=== PATIENT | female | born 1940 | race Caucasian/White ===

== ENCOUNTER 2025-05-23 16:57 | Inpatient (IN) | payer MEDICARE, OTHER ==
[~2025-05-23] VITALS: Ht 149.9 cm; Wt 46.3 kg
[2025-05-23 17:05] VITALS: BP 124/76
[2025-05-23] MEDS ORDERED: ACET-2605 PO (17:35)
[2025-05-23] MEDS ORDERED: LIDOCAINE 5% OINT TOP (17:35)
[2025-05-23] MEDS ORDERED: DONE10TA44 PO (17:35)
[2025-05-23] MEDS ORDERED: ALBU8HFA4 INH (17:35)
[2025-05-23] MEDS ORDERED: SENN8.6T19 PO (17:35)
[2025-05-23] MEDS ORDERED: CHOL200078 PO (17:35)
[2025-05-23] MEDS ORDERED: NITR0.4T48 SL (17:35)
[2025-05-23] MEDS ORDERED: MELA3CAP2 PO (17:35)
[2025-05-23] MEDS ORDERED: BISA10SU61 RC (17:35)
[2025-05-23] MEDS ORDERED: MULT-213 PO (17:35)
[2025-05-23] MEDS ORDERED: ACET325C7 PO (17:35)
[2025-05-23] MEDS ORDERED: POLY17PO4 PO (17:35)
[2025-05-23] MEDS ORDERED: MIRT-93 PO (17:35)
[2025-05-23] MEDS ORDERED: QUET25TA PO (17:35)
[2025-05-23] MEDS ORDERED: CLON0.2T PO (17:35)
[2025-05-23] MEDS ORDERED: CHLO473M5 PO (17:35)
[2025-05-23] MEDS ORDERED: LEVO25TA9 PO (17:35)
[2025-05-23] MEDS ORDERED: CYCL30DR EACHEYE (17:35)
[2025-05-23] MEDS ORDERED: FURO20TA4 PO (17:35)
[2025-05-23] MEDS ORDERED: LORA-258 PO (17:35)
[2025-05-23] MEDS: HYDROCODONE/APAP 5-325MG TABLET PO ONE (19:45)
[2025-05-23] MEDS ORDERED: MAGNESIUM HYDROXIDE 30 ML LIQUID UDC PO PRN (22:30)
[2025-05-23] MEDS ORDERED: TEMAZEPAM 7.5 MG CAPSULE PO PRN (22:30)
[2025-05-23] MEDS ORDERED: MAG HYDROX/AL HYDROX/SIMETH 30 ML LIQUID UDC PO PRN (22:30)
[2025-05-23] MEDS: LORAZEPAM 1 MG TABLET PO PRN (23:08)
[2025-05-23] MEDS: BLOOD SUGAR DIAGNOSTIC 1 EACH STRIP VI ONE (23:10)
[2025-05-24] MEDS: TEMAZEPAM 7.5 MG CAPSULE PO PRN (01:32)
[2025-05-24 07:40] LABS: PLATELET COUNT (AUTO) 130 K/uL (179-408); RED BLOOD CELL COUNT(AUTO) 4.03 MIL/uL (3.63-4.92); RED CELL DISTRIBUTION WIDTH 14.5 % (12.3-17.7); WHITE BLOOD COUNT (AUTO) 5.0 K/uL (3.8-11.8)
[2025-05-24 08:05] LABS: ASPARTATE AMINOTRANSFERASE 19 U/L (15-37); CREATININE 0.7 mg/dL (0.6-1.3); SODIUM SERUM 142 mmol/L (136-145); TOTAL PROTEIN, SERUM 6.7 g/dL (6.4-8.2); UREA NITROGEN, BLOOD 22 mg/dL (7-18)
[2025-05-24] MEDS ORDERED: ACET325T53 PO (09:12)
[2025-05-24] MEDS ORDERED: ALBU8HFA4 IH (09:13)
[2025-05-24 09:16] VITALS: BP 137/77; TEMP 98; O2SAT 98
[2025-05-24 14:50] VITALS: BP 107/68; TEMP 98.5; O2SAT 96
[2025-05-24] MEDS ORDERED: NITROGLYCERIN 0.4 MG/TAB BOTTLE SL PRN (19:45)
[2025-05-24] MEDS ORDERED: BISACODYL 10 MG SUPP.RECT RC PRN (19:45)
[2025-05-24] MEDS ORDERED: MIRALAX 17 GM POWD.PACK PO PRN (19:45)
[2025-05-24] MEDS ORDERED: SENNOSIDES 1 TABLET PO PRN (19:45)
[2025-05-24 20:00] VITALS: BP 159/61; TEMP 97.7; O2SAT 98
[2025-05-24] MEDS: MIRTAZAPINE 15 MG TABLET PO SCH (20:39)
[2025-05-24] MEDS: LORAZEPAM 1 MG TABLET PO PRN (20:54)
[2025-05-25] MEDS: TEMAZEPAM 15 MG CAPSULE PO PRN (00:21)
[2025-05-25] MEDS: ACETAMINOPHEN 325 MG TABLET PO PRN (00:21)
[2025-05-25 08:02] VITALS: BP 136/86; TEMP 98.5; O2SAT 96
[2025-05-25] MEDS: LEVOTHYROXINE SODIUM 25 MCG TABLET PO SCH (09:41)
[2025-05-25] MEDS: MULTIVITAMINS,THERAPEUTIC TABLET PO SCH (09:42)
[2025-05-25] MEDS: CHOLECALCIFEROL 1,000 UNIT TABLET PO SCH (09:42)
[2025-05-25] MEDS: LIDOCAINE 5% OINT 35.44 GM TUBE TOP SCH (09:42)
[2025-05-25] MEDS: ENSURE ENLIVE (VAN) 240 ML LIQUID PO SCH (09:43)
[2025-05-25 16:46] VITALS: BP 106/64; TEMP 98.5; O2SAT 96
[2025-05-25 19:52] VITALS: BP 100/51; TEMP 98.1; O2SAT 98
[2025-05-26 08:27] VITALS: BP 146/65; TEMP 98.5; O2SAT 96
[2025-05-26 16:39] VITALS: BP 142/68; TEMP 98.5; O2SAT 96
[2025-05-26 20:00] VITALS: BP 140/70; TEMP 98.8; O2SAT 97
[2025-05-27 08:06] VITALS: BP 141/71; TEMP 98.5; O2SAT 96
[2025-05-27 16:30] VITALS: BP 137/70; TEMP 98.5; O2SAT 96
[2025-05-27 19:49] VITALS: BP 98/53; TEMP 98.2; O2SAT 97
[2025-05-27 20:00] VITALS: BP 138/77
[2025-05-28 07:45] VITALS: BP 138/68; TEMP 97.6; O2SAT 98
[2025-05-28 15:54] VITALS: BP 125/66; TEMP 97.6; O2SAT 98
[2025-05-28 20:00] VITALS: BP 135/80; TEMP 97.6; O2SAT 96
[2025-05-29 08:00] VITALS: BP 119/60; TEMP 97.6; O2SAT 98
[2025-05-29 16:00] VITALS: BP 109/59; TEMP 97.6; O2SAT 98
[2025-05-29 19:00] VITALS: BP 138/55; TEMP 97.8; O2SAT 99
[2025-05-29] MEDS: MIRTAZAPINE 15 MG TABLET PO SCH (22:00)
[2025-05-30 07:50] VITALS: BP 107/67; TEMP 97.6; O2SAT 98
[2025-05-30 16:14] VITALS: BP 116/70; TEMP 97.6; O2SAT 98
[2025-05-31 07:44] VITALS: BP 168/90; TEMP 98.4; O2SAT 99
[2025-05-31 16:09] VITALS: BP 118/51; TEMP 97.4; O2SAT 99
[2025-05-31 20:00] VITALS: BP 108/55; TEMP 97.4; O2SAT 99
[2025-06-01 07:57] LABS: *BILIRUBIN,URIN NEGATIVE (NEGATIVE); *BLOOD, URINE NEGATIVE (NEGATIVE); *COLOR,URINE YELLOW (YELLOW); *KETONES,URINE NEGATIVE (NEGATIVE); *PROTEIN,URINE NEGATIVE (NEGATIVE); *UROBILINOGEN,URINE 0.2 E.U./dl (NORMAL); LEUKOCYTE ESTERASE ,URINE 2+ (NEGATIVE); NITRITE, URINE POSITIVE (NEGATIVE); UGLUCOSE NEGATIVE (NEGATIVE)
[2025-06-01 07:59] LABS: *CLARITY,URINE HAZY (CLEAR)
[2025-06-01 08:00] LABS: SQUAMOUS EPITHELIAL CELL,UR MODERATE /HPF (NONE SEEN); URINE AMORPHOUS URATE MANY /HPF
[2025-06-01 08:39] VITALS: BP 127/69; TEMP 97.4; O2SAT 99
[2025-06-01 16:15] VITALS: BP 136/73; TEMP 97.4; O2SAT 99
[2025-06-01 21:43] VITALS: BP 145/52; TEMP 97; O2SAT 97
[2025-06-02 08:08] VITALS: BP 118/68; TEMP 98.4; O2SAT 99
[2025-06-02 16:01] VITALS: BP 90/68; TEMP 97.4; O2SAT 99
[2025-06-02 20:15] VITALS: BP 148/58; TEMP 98.6; O2SAT 98
[2025-06-03 08:57] VITALS: BP 106/69; TEMP 97.4; O2SAT 99
[2025-06-03 16:26] VITALS: BP 108/58; TEMP 97.4; O2SAT 99
[2025-06-03 19:42] VITALS: BP 140/60; TEMP 98.2; O2SAT 99
[2025-06-04] MEDS: LEVOTHYROXINE SODIUM 25 MCG TABLET PO SCH (06:22)
[2025-06-04 07:30] VITALS: BP 109/97; TEMP 98.2; O2SAT 93
[2025-06-04 15:26] VITALS: BP 106/56; TEMP 98.6; O2SAT 97
[2025-06-04 19:59] VITALS: BP 110/47; TEMP 97.9; O2SAT 97
[2025-06-05 08:02] VITALS: BP 161/81; TEMP 98.2; O2SAT 96
[2025-06-05 09:48] VITALS: BP 140/59
[2025-06-05 15:03] VITALS: BP 130/51; TEMP 98; O2SAT 98
[2025-06-05 20:00] VITALS: BP 148/66; TEMP 98.1; O2SAT 96
[2025-06-06 07:59] VITALS: BP 121/61; TEMP 97.8; O2SAT 96
[2025-06-06 15:35] VITALS: BP 101/68; TEMP 97.8; O2SAT 99
[2025-06-06 19:55] VITALS: BP 115/52; TEMP 97.9; O2SAT 95
[2025-06-07 07:56] VITALS: BP 159/57; TEMP 98; O2SAT 98
[2025-06-07 15:15] VITALS: BP 110/47; TEMP 98; O2SAT 99
[2025-06-07 20:11] VITALS: BP 112/52; TEMP 98.1; O2SAT 97
[2025-06-08 08:36] VITALS: BP 132/62; TEMP 98; O2SAT 99
[2025-06-08 16:20] VITALS: BP 145/65; TEMP 98; O2SAT 99
[2025-06-08 20:00] VITALS: BP 119/64; TEMP 97.1; O2SAT 96
[2025-06-09 08:55] VITALS: BP 138/69; TEMP 98; O2SAT 99
== END 2025-06-09 11:48 | DRG 885 ==
LOC: ER 16:57 → GPS 22:11
PROVIDERS: ADMIT Psychiatry & Neurology Psychiatry; ATTEND Internal Medicine
DX: F33.3 Major depressive disorder, recurrent, severe with psychotic symptoms (principal); N18.9 Chronic kidney disease, unspecified; F03.C2 Unspecified dementia, severe, with psychotic disturbance; F03.C3 Unspecified dementia, severe, with mood disturbance; D68.59 Other primary thrombophilia; N39.0 Urinary tract infection, site not specified; F03.C11 Unspecified dementia, severe, with agitation; D75.89 Other specified diseases of blood and blood-forming organs; M54.50 Low back pain, unspecified; R26.81 Unsteadiness on feet; G89.29 Other chronic pain; D69.6 Thrombocytopenia, unspecified; I49.9 Cardiac arrhythmia, unspecified; Z74.09 Other reduced mobility; Z91.199 Patient's noncompliance with other medical treatment and regimen due to unspecified reason; Z95.0 Presence of cardiac pacemaker; Z79.899 Other long term (current) drug therapy; Z79.890 Hormone replacement therapy; Z88.5 Allergy status to narcotic agent; Z88.8 Allergy status to other drugs, medicaments and biological substances; Z91.041 Radiographic dye allergy status; Z91.0110 Allergy to milk products, unspecified; Z86.16 Personal history of COVID-19; Z91.81 History of falling
CPT/HCPCS: 36415; 84443; 85025; 87077; 87086